=== PATIENT | male | born 1975 | race Caucasian/White ===

== ENCOUNTER 2024-08-24 10:59 | Emergency (ER) | payer OTHER, SELFPAY ==
[2024-08-24 11:13] VITALS: BP 122/66; PULSE 64; RESP 16; TEMP 36.8; O2SAT 100
--- NOTE | 2024-08-24 11:41 | ED_ITS ---
HPI - Skin/Abscess/Foreign Bdy General Chief complaint: Skin/Abscess/Foreign Body Stated complaint: Rash Time Seen by Provider: 08/24/24 11:20 Source: patient and RN notes reviewed Mode of arrival: ambulatory Limitations: no limitations History of Present Illness HPI narrative: 49-year-old male presents Express Care complaining of poison hilda throughout his body. 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 Patient reports having a rash on his legs, arms, behind his ear and face. Patient denies a rash anywhere else. Patient reports the rash is pruritic. Patient denies any swelling to the face or throat, or any difficulty breathing. Patient has been using [id number] itch cream without relief. Patient denies any significant past medical history. Related Data Allergies Allergy/AdvReac Type Severity Reaction Status Date / Time azithromycin Allergy Intermediate Rash Verified 08/24/24 11:16 Review of Systems Review of Systems: CONSTITUTIONAL: Denies fever, chills, or sweats. EYES: Denies visual changes, redness, or discharge. ENT: Denies rhinorrhea, congestion, sore throat, or otalgia. CARDIOVASCULAR: Denies chest pain, palpitations, or edema. RESPIRATORY: Denies cough or dyspnea. GASTROINTESTINAL: Denies abdominal pain, nausea, vomiting, or diarrhea. GENITOURINARY: Denies dysuria or hematuria. SKIN: Positive for rash and itching. MUSCULOSKELETAL: Denies back pain, joint pain, or myalgia. NEUROLOGIC: Denies headache, numbness, or weakness. PSYCHIATRIC: Denies anxiety or depression. All other systems reviewed are negative, except as documented in HPI. PMFSH Social History Social History Smoking status: Never smoker Alcohol intake: current Comments At the time of my signature, I reviewed and agree with the nursing past medical, surgical, social, and family history. There is no relevant family history pertinent to the patient complaint. Exam Narrative: GENERAL: This is a well-nourished, well-developed adult, in no apparent distress. They are non ill-appearing, nontoxic appearing. HEAD: normocephalic, atraumatic. EYES: Sclera clear/white. Conjunctiva normal. Vision is grossly intact. Extraocular movements intact. Pupils PERRLA EARS: External ears normal, Hearing grossly intact. NOSE: External nose normal THROAT: Mucous membranes moist, posterior pharynx clear, without erythema or swelling. Uvula midline. NECK: Neck supple, CARDIOVASCULAR: Regular rate and rhythm RESPIRATORY: Respiratory rate normal, respiratory effort nonlabored, no respiratory distress SKIN: Face is flushed, no swelling. There is a erythematous pruritic, papular, vesicular rash scattered throughout the patient's bilateral arms, face, and legs. Rashes diffuse to the patient's bilateral knees. Pruritic vesicular rash behind patient's left ear. No mastoid tenderness, swelling, or area of fluctuance or induration. NEURO: awake, alert, and oriented to person, place and time. There were no obvious focal neurologic abnormalities. EXTREMITIES: No joint tenderness, effusion, or edema noted. BACK: Nontender without deformity. Course Course Emergency Course: Portions of this record may have been created with voice recognition software Level of Care: Express Care Visit Vital Signs Vital signs: Vital Signs Temperature 98.2 F 08/24/24 11:13 Pulse Rate 64 08/24/24 11:13 Respiratory Rate 16 08/24/24 11:13 Blood Pressure 122/66 08/24/24 11:13 Pulse Oximetry 100 08/24/24 11:13 Oxygen Delivery Room Air 08/24/24 11:13 Temperature 98.2 F 08/24/24 11:13 Pulse Rate 64 08/24/24 11:13 Respiratory Rate 16 08/24/24 11:13 Blood Pressure 122/66 08/24/24 11:13 Pulse Oximetry 100 08/24/24 11:13 Oxygen Delivery Room Air 08/24/24 11:13 Reviewed MDM - Skin/Abscess/Foreign Bdy MDM Narrative Medical decision making narrative: Patient likely has a contact dermatitis from poison hilda. Will treat empirically with prednisone taper. Recommend supportive therapy as well. Discussed physical exam findings. Advised supportive measures and signs/symptoms to go to the ER. Pt is appropriate for outpt treatment and f/u. Differential Diagnosis Differential diagnosis: Likely cellulitis, eczema and contact dermatitis Critical Care Time Critical Care Time Critical Care Time: No Discharge Plan Discharge Clinical Impression: Poison hilda Patient Disposition: Home Condition: Stable Instructions: Poison Hilda (ED) Additional Instructions: Take the prednisone as directed. Take it in the morning and take it with food. You may use [id number] Tecnu soap as directed on the bottle to help remove the oils from poison hilda off your skin. You may use calamine lotion, camphor, Benadryl cream as needed for itchiness symptoms. You may also take Zyrtec or Claritin as needed for allergy ear itchiness symptoms. Follow-up PCP in 3-5 days. If you develop any worsening redness, swelling, discharge, fevers, breathing problems, or any other concerns please go to the ER immediately. Patient Language: [place] Prescriptions: New prednisone 10 mg tablet See Taper PO DIRECTED Qty: 42 0RF Taper: Prednisone Taper from 60 mg;12 days 60 mg DAILY for 2 Days and 0 Hour 50 mg DAILY for 2 Days and 0 Hour 40 mg DAILY for 2 Days and 0 Hour 30 mg DAILY for 2 Days and 0 Hour 20 mg DAILY for 2 Days and 0 Hour 10 mg DAILY for 2 Days and 0 Hour Rx Instructions: see taper instructions Follow-up/Referrals: PHYSICIAN,P[employer] CUT OFF SAW OPERATOR [Primary Care Provider] - Time of Disposition: 11:27
== END 2024-08-24 11:40 | disposition home or self-care (01) ==
DX: L23.7 Allergic contact dermatitis due to plants, except food (principal)
CPT/HCPCS: 99213; G0463